=== PATIENT | female | born 1960 | race Caucasian/White ===

== ENCOUNTER 2017-03-05 15:17 | Emergency (ER) | payer MEDICAID, OTHER ==
--- NOTE | 2017-03-05 15:38 | ED Physician Chart ---
Chief Complaint/HPI - Patient Information Date Seen:: 03/05/17 Time Seen:: 15:26 Chief Complaint:: Low back pain since yesterday afternoon. History of Present Illness:: Pt c/o low back pain after she slipped on a staircase yesterday when she was carrying an object and she could not see the steps well. No LOC. No other injury or pain. Pt remains ambulatory without difficulty. No weakness or numbness. No urinary or fecal incontinence or retention. Pt had Motrin earlier but no acetaminophen use today. Allergies:: Allergies Allergy/AdvReac Type Severity Reaction Status Date / Time unknown antibiotic Allergy Uncoded 03/05/17 15:26 Vitals:: Vital Signs - 8 hr 03/05/17 15:27 Temp 97.8 F HR 79 RR 15 BP 130/77 O2 Sat % 98 Historian:: Patient Family MD/PCP:: Dr. Nagy LMP:: Postmenopausal Review:: Nurse's Note Reviewed Review of Systems - Review of Systems General/Constitutional: No fever, No chills, No weight loss, No weakness, No diaphoresis, No edema, No loss of appetite Skin: No skin lesions, No rash, No bruising Head: No headache, No light-headedness Eyes: No loss of vision, No pain, No diplopia ENT: No earache, No nasal drainage, No sore throat, No tinnitus Neck: No neck pain, No swelling, No thyromegaly, No stiffness, No mass noted Cardio Vascular: No chest pain, No palpitations, No PND, No orthopnea, No edema Pulmonary: No SOB, No wheezing GI: No nausea, No vomiting, No diarrhea, No pain G/U: No dysuria, No frequency, No hematuria [employer]: No vaginal discharge, No abnormal vaginal bleed Musculoskeletal: Back pain Endocrine: No polyuria, No polydipsia Psychiatric: No prior psych history Hematopoietic: Bruising Allergic/Immuno: No urticaria, No angioedema Neurological: No syncope, No focal symptoms, No weakness, No paresthesia, No headache, No seizure, No dizziness, No confusion, No vertigo Past Medical History - Past Medical History Past Medical History: Asthma/COPD Family History: HTN (mother) Social History: Smoker (1o cigarets daily. Pt has been informed about health risks associated with chronic tobacco use and has been advised to quit. Pt has been encouraged to enroll in a smoking cessation program. Pt acknowledges understanding.), No Alcohol, No Drug Use, , Lives Alone, Employed Employment:: salesperson. Surgical History: (about 32 y/a), other (Stent placement and removal in R kidney about 3 months ago.) Psychiatricy History: None Medication: Reviewed Family Medical History - Family Member mother Hx Family Coronary Artery Disease: Yes Hx Family Hypertension: Yes Physical Exam - Physical Examination General/Constitutional: Awake, Well-developed, well-nourished, Alert, No distress, GCS 15, Non-toxic appearing, Ambulatory Other Gen/Cons comments:: Breathes comfortably, speaks clearly, interacts normally, and ambulatory without assistance. Head: Atraumatic Eyes: Lids, conjuctiva normal, PERRL, EOMI Skin: Nl inspection, No rash, No skin lesions, No ecchymosis, Well hydrated, No lymphadenopathy ENMT: External ears, nose nl, Nasal exam nl, Oropharynx nl Neck: Nontender, Full ROM w/o pain, No nuchal rigidity, No mass, No stridor Respiratory: Nl effort/Exclusion, Clear to Auscultation, No Wheeze/Rhonchi/Rales Cardio Vascular: RRR, No murmur, gallop, rubs GI: No tenderness/rebounding/guarding, No organomegaly, Normal BS's, Nondistended, No mass/bruits Other GI comments:: Abdomen is soft. : No CVA tenderness Other Extremities comments:: Both hips are nontender without abnormalities. L knee: tenderness at medial aspect. No erythema, swelling, open wound, crepitus, ecchymosis, or gross deformity. Good ROM. Negative Drawer's sign. Stable MCL and LCL. No detectable motor/sensory/vascular deficit. Neuro/Psych: Alert/oriented (oriented x 3.), DTR's symmetric, Normal sensory exam, Normal motor strength, Judgement/insight normal, Mood normal, No focal deficits Other Neuro/Psych comments:: Negative SLR's bilaterally. Other Misc comments:: Tenderness at mid lower lumbar region. No gross deformity, erythema, ecchymosis , swelling, crepitus or open wound. ED Septic Shock - . Is Septic Shock (SBP<90, OR Lactate>4 mmol\L) present?: No - <6hrs of presentation: Vital Signs: Vital Signs - 8 hr 03/05/17 15:27 Temp 97.8 F HR 79 RR 15 BP 130/77 O2 Sat % 98 Reassessment (Disposition) - Reassessment Reassessment:: 1725 Pt remained stable and was not in distress. Pt demanded opioid analgesic and was upset because she had to wait for X-ray also. Pt was alert and oriented x 3. She ambulated without difficulty. Pt became belligerent and decided to leave immediately. Pt preferred to seek further care elsewhere. Pt was explained about the indications for further evaluation and treatment, related benefits and risks, including risks for leaving against medical advice. Pt acknowledged understanding but still chose to leave AMA. However, pt refused to sign AMA form. Pt just got up and walk out of the ER quickly and steadily. Pt refused to discuss further. The above discussion, etc. was witnessed by my nurse Mr. Nino Arroyo. Reassessment Condition:: Improved - Diagnosis Diagnosis:: Low back pain without findings of acute injury. L knee pain. - Patient Disposition Discharge/Transfer:: Against Medical Advice (but pt refused to sign AMA form.) Time:: 17:20 Condition at Disposition:: Stable, Improved ED Discharge Plan - Patient Disposition Admit/Discharge/Transfer: AGAINST MEDICAL ADVICE Condition at Disposition: Unchanged
== END 2017-03-05 16:55 | disposition left against medical advice (07) ==
LOC: ER 15:17
DX: M54.5 Low back pain (principal); M25.562 Pain in left knee; J45.909 Unspecified asthma, uncomplicated; J44.9 Chronic obstructive pulmonary disease, unspecified; F17.210 Nicotine dependence, cigarettes, uncomplicated
CPT/HCPCS: Z7610

== ENCOUNTER 2017-08-20 15:15 | Emergency (ER) | payer MEDICAID, OTHER ==
--- NOTE | 2017-08-20 15:35 | ED Physician Chart ---
ED Chief Complaint/HPI - Patient Information Date Seen:: 08/20/17 Time Seen:: 15:28 Chief Complaint:: Cough History of Present Illness:: 57 yo female had 3 days of SOB, cough productive of purulent sputum. The patient had fatigue, chills and was sweaty. She also had chest pain. Allergies:: Allergies Allergy/AdvReac Type Severity Reaction Status Date / Time doxycycline Allergy Verified 08/20/17 15:26 ED Review of Systems - Review of Systems General/Constitutional: Chills Skin: No rash Head: No headache Eyes: No pain ENT: No nasal drainage Neck: No neck pain Cardio Vascular: Chest pain Pulmonary: Cough, Sputum GI: No nausea, No vomiting Musculoskeletal: Bone or joint pain ED Past Medical History - Past Medical History Past Medical History: Other (left hand trauma) Social History: Smoker, No Alcohol, No Drug Use Surgical History: other (Temporary right ureter stent due to obstruction which was removed) Family Medical History - Family Member mother Hx Family Coronary Artery Disease: Yes Hx Family Hypertension: Yes ED Physical Exam - Physical Examination General/Constitutional: Awake, Alert Head: Atraumatic Eyes: PERRL Skin: No skin lesions ENMT: Nasal exam nl Neck: No nuchal rigidity Other Respiratory comments:: mild rhonchi b/l lungs Cardio Vascular: RRR, No murmur, gallop, rubs, NL S1 S2 GI: No tenderness/rebounding/guarding Extremities: normal strength in all extremities Neuro/Psych: No focal deficits ED Labs/Radiology/EKG Results - Radiology Results Results: CXR: no consolidation ED Assessment - Assessment General Assessment: Bronchitis Leukopenia Assessment/Comments:: CBC, CMP, UA DuoNeb Rocephin IM Smoking cessation discussion D/c home Azithromycin PO F/u PCP or return to ER if symptoms worsen ED Septic Shock - . Is Septic Shock (SBP<90, OR Lactate>4 mmol\L) present?: No ED Reassessment (Disposition) - Reassessment Reassessment Condition:: Improved - Patient Disposition Discharge/Transfer:: Home ED Discharge Plan - Patient Disposition Admit/Discharge/Transfer: PT DISCHARGED HOME Condition at Disposition: Stable Prescriptions: Azithromycin [Zithromax] 250 mg PO DAILY #6 tab Instructions: Bronchitis, [id number], Smoking Cessation Additional Instructions: As tolerated. Forms: School Release Form
[2017-08-20] MEDS ORDERED: Albuterol/Ipratropium Neb 3 ML AERS HHN ONE ×2 (15:44→16:04)
[2017-08-20 16:01] LABS: pH 7.48 (7.35-7.45)
[2017-08-20 16:02] LABS: ALLEN TEST YES
[2017-08-20 16:34] LABS: % BASOPHILS 0.5 % (0.0-2.0); % EOSINOPHILS 1.8 % (0.0-5.0); % LYMPHOCYTES 48.9 % (20.0-50.0); % NEUTROPHILS 35.8 % (40.0-80.0); EOSINOPHILE ABSOLUTE 0.1 Th/cmm (0.1-0.4); HEMATOCRIT 38.4 % (41.0-60); HEMOGLOBIN 12.8 gm/dL (12-16); MEAN CELL VOLUME 93.1 fl (81-100); MEAN CORPUSCULAR HEMOGLOBIN 30.9 pg (27.0-31.0); MEAN CORPUSCULAR HGB CONC 33.2 pg (28.0-36.0); MEAN PLATELET VOLUME 8.9 fl; MONOCYTE ABSOLUTE 0.5 Th/cmm (0.3-1.0); NEUTROPHILE ABSOLUTE 1.5 Th/cmm (1.8-8.0); PLATELET COUNT 145 Th/cmm (150-400); RED BLOOD COUNT 4.13 Mil/cmm (3.80-5.10); RED CELL DISTRIBUTION WIDTH 12.4 % (11.5-20.0); WHITE BLOOD COUNT 4.1 Th/cmm (4.8-10.8)
[2017-08-20 16:44] LABS: ALB/GLOB RATIO 1.4 (1.0-1.8); ALBUMIN 3.8 gm/dL (3.7-5.3); ALKALINE PHOSPHATASE 49 U/L (34-104); ANION GAP 4.6 (7.0-16.0); BILIRUBIN,TOTAL 0.2 mg/dL (0.3-1.0); BUN - UREA NITROGEN 8 mg/dL (7-25); CALCIUM SERUM 9.2 mg/dL (8.6-10.3); CARBON DIOXIDE 30.3 mEq/L (21.0-31.0); CHLORIDE 103 mEq/L (98-107); CREATININE - SERUM 0.7 mg/dL (0.6-1.2); GFR AFRICAN-AMERICAN > 60.0 ml/min (>90); GFR NON AFRICAN-AMERICAN > 60.0 ml/min; GLUCOSE 85 mg/dL (70-105); POTASSIUM SERUM 3.9 mEq/L (3.5-5.1); SGOT 14 U/L (13-39); SGPT/ALT 9 U/L (7-52); SODIUM SERUM 134 mEq/L (136-145); TOTAL PROTEIN,SERUM 6.5 gm/dL (6.0-8.3)
[2017-08-20 16:49] LABS: URINE MICROSCOPIC INDICATED? YES; URINE SOURCE RANDOM
[2017-08-20 16:51] LABS: URINE BILIRUBIN NEGATIVE (NEGATIVE); URINE BLOOD MODERATE (NEGATIVE); URINE GLUCOSE (UA) NEGATIVE (NEGATIVE); URINE KETONE NEGATIVE (NEGATIVE); URINE LEUKOCYTE ESTERASE NEGATIVE (NEGATIVE); URINE NITRATE NEGATIVE (NEGATIVE); URINE PROTEIN NEGATIVE (NEGATIVE); URINE UROBILINOGEN 0.2 E.U./dL (0.2 - 1.0)
[2017-08-20 17:08] LABS: OPIATES (MORPHINE) QUAL. URINE POSITIVE (NEGATIVE)
[2017-08-20 17:09] LABS: AMPHETAMINE URINE NEGATIVE (NEGATIVE); BARBITURATES URINE NEGATIVE (NEGATIVE); BENZODIAZEPINES QUAL URINE NEGATIVE (NEGATIVE); CANNABINOID THC NEGATIVE (NEGATIVE); COCAINE METABOLITE QUAL URINE NEGATIVE (NEGATIVE); METHADONE URINE POSITIVE (NEGATIVE); METHAMPHETAMINES QUAL URINE NEGATIVE (NEGATIVE); PHENCYCLIDINE (PCP) URINE NEGATIVE (NEGATIVE); TRICYCLICS (TCA) QUAL. URINE NEGATIVE (NEGATIVE)
[2017-08-20] MEDS ORDERED: Azithromycin 500 MG in Sodium Chloride 0.9% 250 ML IV ONE (17:10)
[2017-08-20 17:12] LABS: URINE CLARITY CLEAR (CLEAR); URINE COLOR YELLOW
[2017-08-20 17:17] LABS: URINE BACTERIA NONE SEEN /hpf (NONE SEEN); URINE EPITHELIAL CELLS FEW /lpf (FEW); URINE WBC 0-2 /hpf (0-5)
--- NOTE | 2017-08-21 07:22 | Diagnostic Imaging Report ---
Portable chest x-ray Time: 1758 hours History: Cough Allowing for portable technique the heart size is normal. No focal pulmonary parenchymal processes. No hilar or mediastinal abnormalities. Impression: No acute abnormalities.
== END 2017-08-20 18:29 | disposition home or self-care (01) ==
LOC: ER 15:15
DX: J20.9 Acute bronchitis, unspecified (principal); F17.200 Nicotine dependence, unspecified, uncomplicated
CPT/HCPCS: 99285; 96372; 82803; 36600; 94640; 71045; 36415; 80307; 85025; 87086; 81001; 80053; J0696

== ENCOUNTER 2017-08-24 13:21 | Emergency (ER) | payer MEDICAID ==
[2017-08-24] MEDS ORDERED: Sodium Chloride 0.9% 2,000 ML IV ONE (14:00)
--- NOTE | 2017-08-24 14:08 | ED Physician Chart ---
ED Chief Complaint/HPI - Patient Information Date Seen:: 08/24/17 Time Seen:: 13:55 Chief Complaint:: syncope History of Present Illness:: Yesterday patient fainted twice when she stood up. She complains of dizziness, weakness and nausea. She's had no vomiting. For the last 3 days she's had about 15 times per day watery diarrhea. She also complains of anterior chest pain and cough. Allergies:: Allergies Allergy/AdvReac Type Severity Reaction Status Date / Time doxycycline Allergy Verified 08/20/17 15:26 Historian:: Patient Review:: Nurse's Note Reviewed ED Review of Systems - Review of Systems General/Constitutional: No fever, No chills Skin: No skin lesions Head: No headache Eyes: No loss of vision ENT: No earache Neck: No neck pain Cardio Vascular: Chest pain Pulmonary: Cough GI: Nausea, No vomiting, Diarrhea ED Past Medical History - Past Medical History Past Medical History: Other (urinary tract infection; blocked right kidney) Family History: HTN, Other (rheumatic heart disease) Social History: Smoker Surgical History: , other (skin grafts; tonsillectomy; tube thoracotomy for pneumothorax) Psychiatricy History: Other Medication: Reviewed Family Medical History - Family Member mother Ethnicity: Non- Living Status: Still Living Hx Family Coronary Artery Disease: Yes Hx Family Hypertension: Yes ED Physical Exam - Physical Examination General/Constitutional: Well-developed, well-nourished, Alert, No distress Head: Atraumatic Eyes: PERRL Skin: No ecchymosis, Well hydrated ENMT: External ears, nose nl, TM canals nl, Nasal exam nl Other ENMT comments:: Upper and lower dentures Neck: No nuchal rigidity Respiratory: Nl effort/Exclusion, Clear to Auscultation Cardio Vascular: RRR, No murmur, gallop, rubs, NL S1 S2 GI: No tenderness/rebounding/guarding, No organomegaly, No hernia, Normal BS's Extremities: Normal digits & nails Neuro/Psych: Alert/oriented Misc: No paraspinal tenderness ED Labs/Radiology/EKG Results - Lab Results Results: Laboratory Results - last 24 hr 08/24/17 08/24/17 08/24/17 14:13 14:13 14:13 WBC 4.6 L RBC 4.66 Hgb 14.5 Hct 43.0 D MCV 92.2 MCH 31.1 H MCHC Differential 33.7 RDW 11.9 Plt Count 199 D MPV 8.5 Neutrophils % 50.7 Lymphocytes % 40.1 Monocytes % 6.8 Eosinophils % 1.5 Basophils % 0.9 Sodium 136 Potassium 3.6 Chloride 108 H Carbon Dioxide 22.0 Anion Gap 9.6 BUN 13 Creatinine 0.6 Est GFR ( Amer) > 60.0 Est GFR (Non-Af Amer) > 60.0 BUN/Creatinine Ratio 21.7 Glucose 130 H Calcium 9.2 Magnesium 1.9 Lipase 26 Urine Source Urine Color Urine Clarity Urine pH Ur Specific Delta Urine Protein Urine Glucose (UA) Urine Ketones Urine Blood Urine Nitrate Urine Bilirubin Urine Urobilinogen Ur Leukocyte Esterase Urine RBC Urine WBC Ur Epithelial Cells Urine Bacteria 08/24/17 15:30 WBC RBC Hgb Hct MCV MCH MCHC Differential RDW Plt Count MPV Neutrophils % Lymphocytes % Monocytes % Eosinophils % Basophils % Sodium Potassium Chloride Carbon Dioxide Anion Gap BUN Creatinine Est GFR ( Amer) Est GFR (Non-Af Amer) BUN/Creatinine Ratio Glucose Calcium Magnesium Lipase Urine Source RANDOM Urine Color YELLOW Urine Clarity CLEAR Urine pH 6.0 Ur Specific Delta 1.010 Urine Protein NEGATIVE Urine Glucose (UA) NEGATIVE Urine Ketones NEGATIVE Urine Blood TRACE Urine Nitrate NEGATIVE Urine Bilirubin NEGATIVE Urine Urobilinogen 0.2 Ur Leukocyte Esterase NEGATIVE Urine RBC 2-5 Urine WBC NONE SEEN Ur Epithelial Cells NONE SEEN Urine Bacteria NONE SEEN - EKG Interpretations Rate & Rhythm: normal sinus rhythm with a rate of 60 [place]: normal 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 Patient appears to drink a lot of half Gatorade half water and eat bananas. She was encouraged to have a regular diet avoiding fatty, oily, greasy foods for a few days. She can drink some extra orange juice for the potassium it contains. ED Septic Shock - . Is Septic Shock (SBP<90, OR Lactate>4 mmol\L) present?: No ED Reassessment (Disposition) - Reassessment Reassessment Condition:: Improved - Diagnosis Diagnosis:: Viral enteritis with diarrhea; two syncopal episodes secondary to dehydration - Aftercare/Follow up Instructions Aftercare/Follow-Up Instructions:: Counseled pt regarding lab results/diagnosis & need follow up - Patient Disposition Discharge/Transfer:: Home Condition at Disposition:: Stable, Improved
[2017-08-24 14:25] LABS: % BASOPHILS 0.9 % (0.0-2.0); % EOSINOPHILS 1.5 % (0.0-5.0); % LYMPHOCYTES 40.1 % (20.0-50.0); % MONOCYTES 6.8 % (2.0-10.0); % NEUTROPHILS 50.7 % (40.0-80.0); EOSINOPHILE ABSOLUTE 0.1 Th/cmm (0.1-0.4); HEMOGLOBIN 14.5 gm/dL (12-16); LYMPHOCYTE ABSOLUTE 1.8 Th/cmm (1.5-3.0); MEAN CELL VOLUME 92.2 fl (81-100); MEAN CORPUSCULAR HEMOGLOBIN 31.1 pg (27.0-31.0); MEAN CORPUSCULAR HGB CONC 33.7 pg (28.0-36.0); MEAN PLATELET VOLUME 8.5 fl; MONOCYTE ABSOLUTE 0.3 Th/cmm (0.3-1.0); NEUTROPHILE ABSOLUTE 2.4 Th/cmm (1.8-8.0); RED BLOOD COUNT 4.66 Mil/cmm (3.80-5.10); RED CELL DISTRIBUTION WIDTH 11.9 % (11.5-20.0); WHITE BLOOD COUNT 4.6 Th/cmm (4.8-10.8)
[2017-08-24 14:42] LABS: ANION GAP 9.6 (7.0-16.0); BUN - UREA NITROGEN 13 mg/dL (7-25); CALCIUM SERUM 9.2 mg/dL (8.6-10.3); CHLORIDE 108 mEq/L (98-107); CREATININE - SERUM 0.6 mg/dL (0.6-1.2); GFR AFRICAN-AMERICAN > 60.0 ml/min (>90); GFR NON AFRICAN-AMERICAN > 60.0 ml/min; GLUCOSE 130 mg/dL (70-105); MAGNESIUM 1.9 mg/dL (1.9-2.7); POTASSIUM SERUM 3.6 mEq/L (3.5-5.1); SODIUM SERUM 136 mEq/L (136-145)
[2017-08-24 14:45] LABS: PLATELET COUNT 199 Th/cmm (150-400)
[2017-08-24 15:53] LABS: URINE MICROSCOPIC INDICATED? YES; URINE SOURCE RANDOM
[2017-08-24 15:58] LABS: URINE BILIRUBIN NEGATIVE (NEGATIVE); URINE BLOOD TRACE (NEGATIVE); URINE GLUCOSE (UA) NEGATIVE (NEGATIVE); URINE KETONE NEGATIVE (NEGATIVE); URINE LEUKOCYTE ESTERASE NEGATIVE (NEGATIVE); URINE NITRATE NEGATIVE (NEGATIVE); URINE PROTEIN NEGATIVE (NEGATIVE); URINE UROBILINOGEN 0.2 E.U./dL (0.2 - 1.0)
[2017-08-24 16:03] LABS: URINE CLARITY CLEAR (CLEAR); URINE COLOR YELLOW
[2017-08-24 16:07] LABS: URINE BACTERIA NONE SEEN /hpf (NONE SEEN); URINE EPITHELIAL CELLS NONE SEEN /lpf (FEW); URINE WBC NONE SEEN /hpf (0-5)
--- NOTE | 2017-08-25 08:09 | Diagnostic Imaging Report ---
Portable chest x-ray Time: 1418 hours History: Cough Allowing for portable technique the heart size is normal. No focal pulmonary parenchymal processes. No hilar or mediastinal abnormalities. Impression: No acute abnormalities.
== END 2017-08-24 17:15 | disposition home or self-care (01) ==
LOC: ER 13:21
DX: A08.4 Viral intestinal infection, unspecified (principal); R19.7 Diarrhea, unspecified; R55 Syncope and collapse; E86.0 Dehydration; F17.200 Nicotine dependence, unspecified, uncomplicated
CPT/HCPCS: 36415-UA; 71045-TC; 80048-TC; 81001-TC; 83690-TC; 83735-TC; 85025-TC; 93005; J7030

== ENCOUNTER 2017-10-31 10:56 | Emergency (ER) | payer MEDICAID ==
--- NOTE | 2017-10-31 11:18 | ED Physician Chart ---
ED Chief Complaint/HPI - Patient Information Date Seen:: 10/31/17 Time Seen:: 11:00 Chief Complaint:: Right Knee Pain History of Present Illness:: onset x one week of intermittent, dull, MS type Right knee and left hand pain; pt denies trauma, H/As, neck pain, cough, C/P, SOB, Abd. Pain, A/N/V/D/C, fever , chills, or urinary s/s; pt denies paresthesias, weakness, dizziness, visual or gait changes, vertigo, or claudication Allergies:: Allergies Allergy/AdvReac Type Severity Reaction Status Date / Time doxycycline Allergy Verified 08/24/17 14:14 Historian:: Patient Review:: Nurse's Note Reviewed ED Review of Systems - Review of Systems General/Constitutional: No fever, No chills, No weight loss, No weakness, No diaphoresis, No edema, No loss of appetite Skin: No skin lesions, No rash, No bruising Head: No headache, No light-headedness Eyes: No loss of vision, No pain, No diplopia ENT: No earache, No nasal drainage, No sore throat, No tinnitus Neck: No neck pain, No swelling, No thyromegaly, No stiffness, No mass noted Cardio Vascular: No chest pain, No palpitations, No PND, No orthopnea, No edema Pulmonary: No SOB, No cough, No sputum, No wheezing GI: No nausea, No vomiting, No diarrhea, No pain, No melena, No hematochezia, No constipation, No hematemesis G/U: No dysuria, No frequency, No hematuria, No nacturia Manager [employer]: No vaginal discharge, No abnormal vaginal bleed, No contraction Musculoskeletal: Bone or joint pain, No back pain, No muscle pain Endocrine: No polyuria, No polydipsia Psychiatric: No prior psych history, No depression, No anxiety, No suicidal ideation, No homicidal ideation, No auditory hallucination, No visual hallucination Hematopoietic: No bruising, No lymphadenopathy Allergic/Immuno: No urticaria, No angioedema Neurological: No syncope, No focal symptoms, No weakness, No paresthesia, No headache, No seizure, No dizziness, No confusion, No vertigo ED Past Medical History - Past Medical History Obtainable: Yes Past Medical History: Arthritis Family History: HTN Social History: Smoker, No Alcohol, No Drug Use, Surgical History: None Psychiatricy History: None Medication: Reviewed Family Medical History - Family Member mother History Unknown: Yes Ethnicity: Non- Living Status: Still Living Hx Family Coronary Artery Disease: Yes Hx Family Hypertension: Yes ED Physical Exam - Physical Examination General/Constitutional: Awake, Well-developed, well-nourished, Alert, No distress, GCS 15, Non-toxic appearing, Ambulatory Head: Atraumatic Eyes: Lids, conjuctiva normal, PERRL, EOMI Skin: Nl inspection, No rash, No skin lesions, No ecchymosis, Well hydrated, No lymphadenopathy ENMT: External ears, nose nl, TM canals nl, Nasal exam nl, Lips, teeth, gums nl , Oropharynx nl, Tonsils nl Neck: Nontender, Full ROM w/o pain, No JVD, No nuchal rigidity, No bruit, No mass, No stridor Other Neck comments:: supple; no meningeal signs; no cervical tenderness; no bruits Respiratory: Nl effort/Exclusion, Clear to Auscultation, No Wheeze/Rhonchi/Rales Cardio Vascular: RRR, No murmur, gallop, rubs, NL S1 S2, Carotid/Femoral/Distal pulses equal bilaterally GI: No tenderness/rebounding/guarding, No organomegaly, No hernia, Normal BS's, Nondistended, No mass/bruits, No McBurney tenderness Other GI comments:: no pulsatile masses : No CVA tenderness Extremities: No tenderness or effusion, Full ROM, normal strength in all extremities, No edema, Normal digits & nails Other Extremities comments:: + DJD Changes especially at MCP joints of the hands with left hand MCP and Right Knee tenderness; no loss of ROMs; no cellulitis; no septic joints; no FBs ; no ligament instability; good motor, tendon, and sensory functions; good NV functions Neuro/Psych: Alert/oriented, DTR's symmetric, Normal sensory exam, Normal motor strength, Judgement/insight normal, Mood normal, Normal gait, No focal deficits Misc: Normal back, No paraspinal tenderness ED Labs/Radiology/EKG Results - Radiology Results Results: X-rays- deferred by pt Comments:: NAD; no DVT; ED Septic Shock - . Is Septic Shock (SBP<90, OR Lactate>4 mmol\L) present?: No ED Reassessment (Disposition) - Reassessment Reassessment:: pt is asymptomatic upon discharge Reassessment Condition:: Improved - Diagnosis Diagnosis:: Knee Pain; Hand Pain; Osteoarthritis; Degenerative Joint Disease; Sprains and Strains - Aftercare/Follow up Instructions Aftercare/Follow-Up Instructions:: Counseled pt regarding lab results/diagnosis & need follow up, Refer to Discharge Instructions, Counseled pt & family regarding lab results/diagnosis & need follow up Medication Prescribed:: take medications as prescribed - Patient Disposition Discharge/Transfer:: Home Condition at Disposition:: Stable, Improved (RTER prn if existing s/s reoccur and/or get worse and/or any other new s/s occur; X-Rays/US Care Instructions; ACIs given for all above Dx; Refer to Orthopedist/[facility]ognos Consultant/Geothermal Powerplant Supervisor GHANSHYAM ; F/U with PMD in one day or prn; RTER prn if concerned) ED Discharge Plan - Patient Disposition Admit/Discharge/Transfer: PT DISCHARGED HOME Condition at Disposition: Stable Instructions: Osteoarthritis, Sprain, [id number] Additional Instructions: Follow-up with primary MD and follow-up regarding pain medication adjustment
--- NOTE | 2017-10-31 12:43 | Diagnostic Imaging Report ---
Exam: Ultrasound examination deep venous circulation lower extremities. HISTORY: DVT Findings: Real-time ultrasound exam of the lower extremities performed multiple planes utilizing color Doppler technique. The study demonstrates normal compressibility and augmentation of deep venous system throughout. IMPRESSION: No evidence of deep venous thrombosis lower extremities bilaterally.
== END 2017-10-31 13:25 | disposition home or self-care (01) ==
LOC: ER 10:56
DX: M19.90 Unspecified osteoarthritis, unspecified site (principal); M79.642 Pain in left hand
CPT/HCPCS: 93970-TC-50; Z7502

== ENCOUNTER 2018-04-14 14:22 | Emergency (ER) | payer MEDICAID ==
--- NOTE | 2018-04-14 14:48 | ED Physician Chart ---
ED Chief Complaint/HPI - Patient Information Date Seen:: 04/14/18 Time Seen:: 14:42 Chief Complaint:: vomiting History of Present Illness:: This is a 57 yo female who states that she has food poisoning from eating some chicken from her mother's refrigerator last night. she states that since then she has been vomiting with some diarrhea. she states that she does not want her blood drawn or want an iv fluids. The patient refused the ekg. Allergies:: Allergies Allergy/AdvReac Type Severity Reaction Status Date / Time doxycycline Allergy Verified 08/24/17 14:14 Vitals:: Vital Signs - 8 hr 04/14/18 14:31 Temp 97.7 F HR 62 RR 16 BP 119/74 O2 Sat % 96 Historian:: Patient Review:: Nurse's Note Reviewed, Old Chart Reviewed ED Review of Systems - Review of Systems General/Constitutional: No fever, No chills, No weight loss, No weakness, No diaphoresis, No edema, No loss of appetite Skin: No skin lesions, No rash, No bruising Head: No headache, No light-headedness Eyes: No loss of vision, No pain, No diplopia ENT: No earache, No nasal drainage, No sore throat, No tinnitus Neck: No neck pain, No swelling, No thyromegaly, No stiffness, No mass noted Cardio Vascular: No chest pain, No palpitations, No PND, No orthopnea, No edema Pulmonary: No SOB, No cough, No sputum, No wheezing GI: Nausea, Vomiting, Diarrhea, No pain, No melena, No hematochezia, No constipation, No hematemesis G/U: No dysuria, No frequency, No hematuria Musculoskeletal: No bone or joint pain, No back pain, No muscle pain Endocrine: No polyuria, No polydipsia Psychiatric: No prior psych history, No depression, No anxiety, No suicidal ideation Hematopoietic: No bruising, No lymphadenopathy Allergic/Immuno: No urticaria, No angioedema Neurological: No syncope, No focal symptoms, No weakness, No paresthesia, No headache, No seizure, No dizziness, No confusion, No vertigo ED Past Medical History - Past Medical History Obtainable: Yes Past Medical History: Other (drug abuse, ) Family History: Heart disease (mother) Social History: Smoker, No Alcohol, Illicit Drug Use Surgical History: None Psychiatricy History: None Medication: Reviewed Family Medical History - Family Member mother History Unknown: Yes Ethnicity: Non- Living Status: Still Living Hx Family Coronary Artery Disease: Yes Hx Family Hypertension: Yes ED Physical Exam - Physical Examination General/Constitutional: Awake, Well-developed, well-nourished, Alert, No distress, GCS 15, Non-toxic appearing, Ambulatory Head: Atraumatic Eyes: Lids, conjuctiva normal, PERRL, EOMI Skin: Nl inspection, No rash, No skin lesions, No ecchymosis, Well hydrated, No lymphadenopathy ENMT: External ears, nose nl, Nasal exam nl, Lips, teeth, gums nl Neck: Nontender, Full ROM w/o pain, No JVD, No nuchal rigidity, No bruit, No mass, No stridor Respiratory: Nl effort/Exclusion, Clear to Auscultation, No Wheeze/Rhonchi/Rales Cardio Vascular: RRR, No murmur, gallop, rubs, NL S1 S2 GI: No tenderness/rebounding/guarding (there are no tender area of the abdomen and no masses with no distention), No organomegaly, No hernia, Normal BS's, Nondistended, No mass/bruits, No McBurney tenderness : No CVA tenderness Extremities: No tenderness or effusion, Full ROM, normal strength in all extremities, No edema, Normal digits & nails Neuro/Psych: Alert/oriented, DTR's symmetric, Normal sensory exam, Normal motor strength, Judgement/insight normal, Mood normal, Normal gait, No focal deficits Misc: Normal back, No paraspinal tenderness ED Labs/Radiology/EKG Results - Radiology Results Results: chest x-ray = nad ED Assessment - Assessment General Assessment: food poisoning ED Septic Shock - . Is Septic Shock (SBP<90, OR Lactate>4 mmol\L) present?: No - <6hrs of presentation: Vital Signs: Vital Signs - 8 hr 04/14/18 14:31 Temp 97.7 F HR 62 RR 16 BP 119/74 O2 Sat % 96 ED Reassessment (Disposition) - Reassessment Reassessment Condition:: Improved - Diagnosis Diagnosis:: food poisoning - Aftercare/Follow up Instructions Aftercare/Follow-Up Instructions:: Counseled pt regarding lab results/diagnosis & need follow up, Refer to Discharge Instructions, Counseled pt & family regarding lab results/diagnosis & need follow up Medication Prescribed:: zofran odt 8 mg - Patient Disposition Discharge/Transfer:: Home Condition at Disposition:: Improved
[2018-04-14 15:15] LABS: URINE SOURCE CLEAN C
[2018-04-14 15:19] LABS: URINE BILIRUBIN NEGATIVE (NEGATIVE); URINE CLARITY CLEAR (CLEAR); URINE COLOR YELLOW; URINE GLUCOSE (UA) NEGATIVE (NEGATIVE); URINE KETONE NEGATIVE (NEGATIVE)
[2018-04-14 15:20] LABS: URINE LEUKOCYTE ESTERASE NEGATIVE (NEGATIVE); URINE MICROSCOPIC INDICATED? YES; URINE NITRATE NEGATIVE (NEGATIVE); URINE PROTEIN NEGATIVE (NEGATIVE)
[2018-04-14 15:23] LABS: URINE BLOOD MODERATE (NEGATIVE)
[2018-04-14 15:24] LABS: URINE BACTERIA 1+ /hpf (NONE SEEN); URINE EPITHELIAL CELLS MODERATE /lpf (FEW)
[2018-04-14 16:22] LABS: BARBITURATES URINE NEGATIVE (NEGATIVE); BENZODIAZEPINES QUAL URINE NEGATIVE (NEGATIVE); CANNABINOID THC NEGATIVE (NEGATIVE); COCAINE METABOLITE QUAL URINE NEGATIVE (NEGATIVE); METHADONE URINE NEGATIVE (NEGATIVE); METHAMPHETAMINES QUAL URINE NEGATIVE (NEGATIVE); OPIATES (MORPHINE) QUAL. URINE NEGATIVE (NEGATIVE); PHENCYCLIDINE (PCP) URINE NEGATIVE (NEGATIVE); TRICYCLICS (TCA) QUAL. URINE NEGATIVE (NEGATIVE)
[2018-04-14 16:23] LABS: AMPHETAMINE URINE POSITIVE (NEGATIVE)
--- NOTE | 2018-04-15 09:21 | Diagnostic Imaging Report ---
CHEST X-RAY: AP view INDICATION: pain COMPARISON: 08/24/2017 FINDINGS: There is no focal consolidation or pleural effusions The heart is normal in size. There is minimal atherosclerosis of the aortic arch. Degenerative changes of the spine are noted with mild scoliosis. IMPRESSION: No focal acute consolidation identified Minimal atherosclerosis of the aortic arch.
== END 2018-04-14 15:20 | disposition home or self-care (01) ==
LOC: ER 14:22
DX: T62.8X1A Toxic effect of other specified noxious substances eaten as food, accidental (unintentional), initial encounter (principal); F17.200 Nicotine dependence, unspecified, uncomplicated; Z88.1 Allergy status to other antibiotic agents; Y92.89 Other specified places as the place of occurrence of the external cause
CPT/HCPCS: 99285; 71045; 80307; 87086; 81001; Q0162